=== PATIENT | male | born 1950 | race Caucasian/White ===

== ENCOUNTER 2017-04-08 11:01 | Day surgery (SDC) | payer MEDICARE, BC ==
[~2017-04-08] VITALS: Ht 182.9 cm; Wt 89.9 kg
[2017-04-08] MEDS ORDERED: IOHEXOL 350 MG/ML 100 ML BTL (for Cath Lab) OTHER ONE (11:02)
[2017-04-08] MEDS ORDERED: FOLI400T PO (11:28)
[2017-04-08] MEDS ORDERED: HYDR200T3 PO (11:31)
[2017-04-08] MEDS ORDERED: ARAV10TA PO (11:31)
[2017-04-08] MEDS ORDERED: PRIL20TA2 (11:31)
[2017-04-08] MEDS ORDERED: PRED10 PO (11:31)
[2017-04-08 12:06] VITALS: BP 162/101; PULSE 58; RESP 18; TEMP 97.7; O2SAT 96
--- NOTE | 2017-04-08 12:17 | PD.VS.PN ---
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 I have explained the procedure in detail and discussed the risks, benefits, and potential complications. All questions have been answered. Julien Frausto MD Apr 08, 2017 12:17
[2017-04-08] MEDS ORDERED: HEPARIN SODIUM - IV 10,000 UNITS/10 ML VIAL ONE (12:29)
[2017-04-08] MEDS ORDERED: MIDAZOLAM HCL 2 MG/2 ML VIAL ONE (12:29)
[2017-04-08] MEDS ORDERED: HEPARIN-NS/PF INJ 1,000 ML ONE ×2 (12:29→12:55)
[2017-04-08 12:46] LABS: AUTOMATED NEUTROPHIL # 3.6 TH/MM3 (1.8-7.7); BASOPHIL # 0.1 TH/MM3 (0-0.2); BASOPHIL % 1.3 % (0.0-2.0); EOSINOPHIL # 0.2 TH/MM3 (0-0.4); EOSINOPHIL % 4.3 % (0.0-4.0); HEMATOCRIT 42.2 % (39.0-51.0); HEMOGLOBIN 14.3 GM/DL (13.0-17.0); LYMPH % 17.2 % (9.0-44.0); MEAN CELL VOLUME 89.5 FL (80.0-100.0); MEAN CORPUSCULAR HEMOGLOBIN 30.3 PG (27.0-34.0); MEAN CORPUSCULAR HGB CONC 33.8 % (32.0-36.0); MEAN PLATELET VOLUME 7.9 FL (7.0-11.0); MONO % 12.6 % (0.0-8.0); MONOCYTE # 0.7 TH/MM3 (0-0.9); NEUT % 64.6 % (16.0-70.0); PLATELET COUNT 203 TH/MM3 (150-450); RED BLOOD COUNT 4.71 MIL/MM3 (4.50-5.90); RED CELL DISTRIBUTION WIDTH 14.1 % (11.6-17.2); WHITE BLOOD COUNT 5.6 TH/MM3 (4.0-11.0)
[2017-04-08 12:56] LABS: BICARBONATE 30.3 MEQ/L (21.0-32.0); CALCIUM 8.8 MG/DL (8.5-10.1); CREATININE 1.09 MG/DL (0.60-1.30)
--- NOTE | 2017-04-08 13:31 | HHI.PR ---
Immediate Post Op Note Procedure Date: Apr 08, 2017 Pre Op Diagnosis: PAD, R LE Post Op Diagnosis: PAD, R LE Surgeon: Julien Frausto Desk Clerk(s): none Procedure: Aortogram w/ R LE angiogram Findings: patent major vessels to pedal arteries Complications: none Specimen(s) removed: none Estimated blood loss: 10mL Drains: None Fluids: 20mL IVF Patient to: Other (DOCU) Patient Condition: Good Implant/Devices: SEE IMPLANT LOG (if applicable) Date/Time of Procedure: SEE SURGICAL CARE RECORD Julien Frausto MD Apr 08, 2017 13:31
--- NOTE | 2017-04-08 13:45 | CATHPROC ---
[facility] Prep HIS Report Study Information Study Number Admission Scheduled Start Study Start [id number] Apr 08 2017 11:01AM 04/08/2017 Apr 08 2017 12:55PM [place] Service Cath Endovascular Study Admit Source Facility Department Other [facility] - Electric Furnace Operator Physician and Clinical Staff Initial Julien Gutierrez Rent Control Office ManagerGloria Gutierrez,RICK Rent Control Office ManagerLino Bray,RICK Recorder Duarte Crane,RT(R) Scrub Davion Mendoza,RT(R) Procedures Performed Procedure Location (Site) Vessel Name Abdominal Angiogram Abd Aorta (A3) Aorta Abdominal Angiogram Popliteal R (R10) Popliteal Abdominal Angiogram SFA (right) Femoral Art Angiogram (manual) Tib, Post (right) Popliteal Wire insertion Fem Art (left) Femoral Art Equipment Time Area Attendant Description Size Mfg Part Number Used/Scraped [id number] 13:00 ANGIO-DYNAMICS OMNI FLUSH 65CM CATHETER FR 4 Used *[id number] INTRODUCER SET, 13:00 [employer] FR 5 [id number] *[id number] Used MICROPUNCTURE, STIFFENED [id number] 13:00 [employer] PACK, CCL CUSTOM * Used *[id number] 13:00 [employer] MEDICAL PRESSURE TUBING 48" 48" [id number] Used [id number] 13:00 NAMIC TUBING, HIGH PRESSURE 20" 20" Used *[id number] 13:11 NAMIC TUBING, HIGH PRESSURE 48" 48" Used *[id number] 13:00 [employer]COMED OMNIPAQUE, 300 MG, 150ML 150ML [id number] Used 13:00 [employer] OMNIPAQUE, 300 MG, 50ML 50ML [id number] Used [id number] 13:00 [employer] MEDICAL BLANKET,WARM AIR CCL * Used *[id number] 13:00 TERUMO MEDICAL SHEATH, FR4 TERUMO (10CM) FR 4 Used *[id number] 13:00 [employer] MEDICAL SHEATH, FR4 TERUMO (10CM) FR 4 Used *[id number] WIRE, ANGLED GLIDE .035 [id number] 13:00 TERUMO MEDICAL/DARLIN 260CM Used 260CM *[id number] History: Current Medications Medication Dosage/Unit Route Frequency Last Date/Time Taken 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: Allergies Allergy Reaction Sulfa (Sulfonamide Antibiotics) History: Risk Factors Family History of Hypertension Dyslipidemia Previous MO Previous Heart Failure Premature CAD Yes No No No No Prior Valve Prior PCI Prior CABG Surgery Yes No No Cerebrovascular Peripheral Artery Chronic Lung On Dialysis Diabetes Disease Disease Disease No No Yes No No History: Stress Tests Stress or Imaging Studies Performed No History: Other Disease Selection Items HTN History: Other Current Smoker No Labs Hgb (g/dl) Hct (%) RBC (MIL/MM3) WBC (l/cumm) Platelets (thousands) 11.60-17.00 35.00-51.00 4.00-5.90 4.00-11.00 150.00-450.00 14.3 42.2 4.7 5.6 203 Glucose (mg/dl) BUN (mg/dl) Creatinine (mg/dl) BUN:Creatinine (1:x) 74.00-106.00 7.00-18.00 0.50-1.30 10.00-20.00 96 16 1.0 16 Na (meq/l) K (meq/l) Cl (meq/l) CO2 (mmol/L) Ca (mg/dl) 136.00-145.00 3.50-5.10 98.00-107.00 21.00-32.00 8.50-10.10 140 3.8 104 30.3 8.8 CPK-MB (ng/ML) 0.50-3.60 Not Drawn Medication Medication Total Dose (Bolus/Oral) Medication Total Dosage/Unit 1% XYLOCAINE 20 mL FENTANYL 50 mcg VERSED 2 mg Medications (Bolus/Oral) Medication Time Given Dosage/Unit Administered By Reason 1% XYLOCAINE 04/08/2017 1:08:52 PM 20 mL Gloria Saleh 20 mL 1% XYLOCAINE given in lab by Gloria Saleh, RICK via Subcutaneous. VERSED 04/08/2017 1:09:00 PM 2 mg Gloria Saleh 2 mg VERSED given in lab by Gloria Saleh, RICK in Left Antecubital via Peripheral IV. FENTANYL 04/08/2017 1:09:01 PM 50 mcg Gloria Saleh 50 mcg FENTANYL given in lab by Gloria Saleh, RN in Left Antecubital via Peripheral IV. Medication (Drip) Medication Time Given Dosage/Unit Concentration/Unit Diluent (ml) Solution 04/08/2017 12:55:57 IV Solutions 0 mL (IV) 500 NaCl .9 PM IV Solutions given in lab by Gloria Saleh, RN in Left Antecubital via Peripheral IV. Pump/Drip Watson w = 20 ml/hr using NaCl .9. Initial Case Assessment Cardiovascular HR Rhythm NIBP Chest Pain 57 Sinus 156/94 0 Edema Present Skin color Skin None Normal Warm Dry Circulatory - Right Pulses Femoral 2 Scale (0,1,2,3,4,d) Circulatory - Left Pulses Femoral 2 Scale (0,1,2,3,4,d) Neurological State Oriented to time-place- Alert Moves all extremities person Respiration - General Respiration Rate SpO2 (%) O2 (lpm) (B/min) 12 98 0 Final Case Assessment Cardiovascular HR Rhythm NIBP Chest Pain 56 Sinus 139/89 0 Edema Present Skin color Skin None Normal Warm Dry Circulatory - Right Pulses Femoral 2 Scale (0,1,2,3,4,d) Circulatory - Left Pulses Femoral 2 Scale (0,1,2,3,4,d) Neurological State Oriented to time-place- Alert Moves all extremities person Respiration - General Respiration Rate SpO2 (%) O2 (lpm) (B/min) 11 96 0 Chronological Log Time Study Chronological Log 12:50:55 MD arrived. 12:55:38 Patient arrived via Bed. 12:55:39 Patient Name, D.O.B, / Armband Verified By R.N. 12:55:39 Consent signed by the physician and the patient and verified by the Electric Furnace Operator staff. 12:55:40 Pre-op and post- op instructions given; patient acknowledges understanding of instructions. 12:55:41 Verbal Stimulation=2 Physical Stimulation=2 Airway=2 Respiration=2 TOTAL=8. (0=absent, 1=li mited, 2=present) 12:55:47 Presedation assessment performed by Electric Furnace Operator RN. 12:55:51 Patient has been NPO for More than 6Hrs. 12:55:51 Skin Breakdown-none per patient. 12:55:52 Patient Warmer Placed on the Table. 12:55:54 Rylie Prominences Protected 12:55:56 A # 20 IV was noted in the Antecubital (left). Grade = 0 IV Solutions given in lab by Gloria Saleh, RN in Left Antecubital via Peripheral IV. Pump/Dr ip Flow = 20 ml/hr using 12:55:57 NaCl .9. 12:55:58 History and physical on the chart or being dictated. Assessment: Initial Case, HR=57 BPM, Rhythm=Sinus, TCCU=782/94 mmhg, Chest Pain=0, Edema=None, Color=Normal, Skin = Warm, Dry Right Pulses: Femoral=2 12:55:59 Left Pulses: Femoral=2 Neurological: State=Alert, Ox3, AARON Respiration: Resp=12 B/min, SpO2=98 %, O2=0 lpm Vitals capture started with the following parameters, Patient=Adult, Interval=5 min, Initial Pr rpsjpd=588 mmHg, 12:56:04 Deflation Rate=5 mmHg, Cuff placed on Right Arm 12:56:59 HR=57 bpm, AHTG=853/94 mmhg, SpO2=98.0 %, Resp=12 B/min, Pain=0, Ck=10, Zhou=2 13:01:40 HR=56 bpm, EKHH=721/95 mmhg, SpO2=99.0 %, Resp=11 B/min, Pain=0, Ck=10, Zhou=2 13:06:41 HR=53 bpm, TZAB=828/96 mmhg, SpO2=99.0 %, Resp=12 B/min, Pain=0, Ck=10, Zhou=2 Time Out. Correct patient, correct procedure, correct physician, power injector loaded with con trast with surgical team 13:08:49 present. Time Out Concurred by MD and individual staff in procedure. 13:08:50 Case Start 13:08:52 20 mL 1% XYLOCAINE given in lab by Gloria Saleh, RICK via Subcutaneous. 13:09:00 2 mg VERSED given in lab by Gloria Saleh, RN in Left Antecubital via Peripheral IV. 13:09:01 50 mcg FENTANYL given in lab by Gloria Saleh, RN in Left Antecubital via Peripheral IV. 13:10:06 Reference ECG taken 13:10:49 Access site was Left Femoral Artery. 13:10:56 A SHEATH, FR4 TERUMO (10CM) FR 4 was advanced into the Fem Art (left) using the Percutaneou s technique. 13:11:44 HR=55 bpm, ZVMN=160/87 mmhg, SpO2=97.0 %, Resp=13 B/min, Pain=0, Ck=10, Zhou=2 A OMNI FLUSH 65CM CATHETER FR 4 was advanced over a wire. OMNIPAQUE, 300 MG, 50ML 50ML was used for 13:11:48 injections. 13:13:32 Through a OMNI FLUSH 65CM CATHETER FR 4, The Abdominal Aorta was injected with 10 cc's of c ontrast. 13:14:02 A WIRE, ANGLED GLIDE .035 260CM 260CM was inserted via Fem Art (left). 13:14:55 Wire removed 13:15:26 Through a OMNI FLUSH 65CM CATHETER FR 4, The Abdominal Aorta was injected with 4 cc's of co ntrast. 13:16:00 Through a OMNI FLUSH 65CM CATHETER FR 4, The Abdominal Aorta was injected with 4 cc's of co ntrast. 13:16:30 Through a OMNI FLUSH 65CM CATHETER FR 4, The Abdominal Aorta was injected with 4 cc's of co ntrast. 13:16:45 HR=56 bpm, GNKC=307/79 mmhg, SpO2=96.0 %, Resp=1 B/min, Pain=0, Ck=10, Zhou=2 13:19:30 Through a OMNI FLUSH 65CM CATHETER FR 4, The Abdominal Aorta was injected with 4 cc's of co ntrast. 13:21:38 HR=55 bpm, BAHK=566/76 mmhg, SpO2=95.0 %, Resp=13 B/min, Pain=0, Ck=10, Zhou=2 13:22:41 Tib, Post (right) angiogram, manually injected. 13:24:05 Catheter was removed 13:24:13 Case End 13:25:16 Sheath removed; pressure applied to access site. 13:25:19 No case complications noted. 13:25:20 Cine recording checked. 13:26:00 Bedside Report will be given. Assessment: Final Case, HR=56 BPM, Rhythm=Sinus, DWRL=856/89 mmhg, Chest Pain=0, Edema=None, Color=Normal, Skin = Warm, Dry Right Pulses: Femoral=2 13:26:16 Left Pulses: Femoral=2 Neurological: State=Alert, Ox3, AARON Respiration: Resp=11 B/min, SpO2=96 %, O2=0 lpm 13:26:37 HR=57 bpm, MCSF=048/89 mmhg, SpO2=96.0 %, Resp=21 B/min, Pain=0, Ck=10, Zhou=2 13:32:13 HR=54 bpm, FDJC=521/88 mmhg, SpO2=96.0 %, Resp=13 B/min, Pain=0, Ck=10, Zhou=2 13:36:41 HR=61 bpm, GPUR=606/89 mmhg, SpO2=95.0 %, Resp=15 B/min, Pain=0, Ck=10, Zhou=2 13:41:42 HR=52 bpm, NUVG=075/89 mmhg, SpO2=97.0 %, Resp=16 B/min, Pain=0, Ck=10, Zhou=2 13:44:39 Vitals capture stopped. 13:48:47 Patient moved to [facility] End Study - Contrast Media Used In Study Contrast Total Opened (mL) Total Used (mL) Total Wasted (mL) Omnipaque 150 75 75 End Study - Maximum Contrast Load Max Contrast Load (mL) 449.5 End Study - Radiation Exposure Fluoro Time (minutes) 3.0 End Study - Patient Disposition Complications Transferred To Interventional Outcome No Outpatient Bed No attempt made
--- NOTE | 2017-04-09 13:33 | MP ---
cc: SHERI FRAUSTO MD DATE OF SURGERY 04/08/2017 PREOPERATIVE DIAGNOSIS Peripheral arterial occlusive disease with right lower extremity tissue loss. POSTOPERATIVE DIAGNOSIS Peripheral arterial occlusive disease with right lower extremity tissue loss. CONSENT Aortogram with right lower extremity angiogram. ATTENDING SURGEON Sheri Frausto MD RESIDENT SURGEON None. ANESTHESIA Local with sedation. INDICATIONS Mr. Navarrete is a 66-year-old gentleman who has a previous right lower extremity intervention done in [place] several months ago. He presents with a toe wound that is slowly healing. He wilkerson non-palpable pedal pulses and is taken to the operating room for angiographic evaluation and eventual treatment. DESCRIPTION OF PROCEDURE Informed consent obtained. The patient was taken to the operating room and placed supine on the operating room table. An appropriate time-out was taken to ensure the patient's identity, the operative site and planned procedure. The administration of antibiotics was not necessary since it is a clean procedure without planned implantation of any foreign object. Everyone in the room agreed with the time-out and we proceeded. His left groin was anesthetized with 1% lidocaine. A 21-gauge micropuncture sheath and needle used to access the left common femoral artery. This was exchanged using Seldinger technique through the micropuncture sheath through which a 0.035 Glidewire was introduced and the micropuncture sheath was exchanged for a 4-Estonian sheath. A VCF catheter was placed over the wire and through the sheath and then the aortogram was obtained. The Glidewire was introduced, navigated down to the right common femoral artery. The VCF catheter was advanced over this and the right lower extremity arteriogram was obtained. The wire, catheter and sheaths were removed and pressure used to obtain hemostasis. There were no complications. I was present and scrubbed and performed the entire procedure. INTERPRETATION OF IMAGES This patient has a patent infrarenal aorta, common iliac arteries, external iliac arteries and hypogastric arteries. None of these have any hemodynamically significant stenoses. The right common femoral artery, profunda and SFA are widely patent without any hemodynamically significant stenosis. The popliteal artery and pretibial vessels are all patent to the ankle. There is some pedal disease that is hemodynamically significant. MD LENNOX HensleyF/LETTY /2:17 PM /1:18 PM MORENO
== END 2017-04-08 16:45 | disposition home or self-care (01) ==
LOC: HDOC 11:01 → HDIC 11:02 → HDOC 16:45
PROVIDERS: ATTEND Surgery
DX: I73.9 Peripheral vascular disease, unspecified (principal); L98.499 Non-pressure chronic ulcer of skin of other sites with unspecified severity; I10 Essential (primary) hypertension; M19.90 Unspecified osteoarthritis, unspecified site; Z95.2 Presence of prosthetic heart valve; Z01.818 Encounter for other preprocedural examination
CPT/HCPCS: 36246; 75625; 75710; 80048; 85025; 99152; C1769; C1893; J1644; J2250; J3010; Q9967

== ENCOUNTER → 2017-04-30 | Outpatient (CLI) | payer MEDICARE, BC ==
[~2017-04-30] MED LIST: ACTE80IN IV; ARAV10TA PO; ASPI81 PO; DILA2TAB4 PO; FOLI400T PO; HYDR200T3 PO; LOSA100T3 PO; METO-309 PO; PRED10 PO; PRIL20TA2 PO; WALKER GLIDE WH1 MI1; [UNRECOGNIZED DRUG - CODE] PO
[2017-04-30 12:45] LABS: HEMATOCRIT 41.9 % (39.0-51.0); HEMOGLOBIN 14.4 GM/DL (13.0-17.0); MEAN CELL VOLUME 90.6 FL (80.0-100.0); MEAN CORPUSCULAR HEMOGLOBIN 31.1 PG (27.0-34.0); MEAN CORPUSCULAR HGB CONC 34.3 % (32.0-36.0); MEAN PLATELET VOLUME 7.7 FL (7.0-11.0); PLATELET COUNT 293 TH/MM3 (150-450); RED BLOOD COUNT 4.62 MIL/MM3 (4.50-5.90); RED CELL DISTRIBUTION WIDTH 14.4 % (11.6-17.2); WHITE BLOOD COUNT 9.1 TH/MM3 (4.0-11.0)
[2017-04-30 12:54] LABS: PROTHROMBIN TIME - PATIENT 10.1 SEC (9.8-11.6)
[2017-04-30 13:00] LABS: BICARBONATE 31.1 MEQ/L (21.0-32.0); CALCIUM 8.6 MG/DL (8.5-10.1); CREATININE 1.21 MG/DL (0.60-1.30)
--- NOTE | 2017-05-01 22:13 | EKG ---
Date Performed: 04/30/2017 Time Performed: 12:07:22 PTAGE: 67 years EKG: Sinus rhythm with 1st degree A-V block Abnormal ECG NO PREVIOUS TRACING DOCTOR: Dick Nascimento Interpretating Date/Time 05/01/2017 22:13:40
== END ==
LOC: CPRE 11:25
PROVIDERS: ATTEND Surgery
DX: Z01.812 Encounter for preprocedural laboratory examination (principal); Z01.810 Encounter for preprocedural cardiovascular examination; M86.9 Osteomyelitis, unspecified
CPT/HCPCS: 36415; 80048; 85027; 85610; 93005

== ENCOUNTER 2017-05-02 14:39 | Observation (INO) | payer MEDICARE, BC ==
[~2017-05-02] VITALS: Ht 182.9 cm; Wt 87.5 kg
[~2017-05-02 14:39] MED LIST changes: -ASPI81 PO; -DILA2TAB4 PO; -WALKER GLIDE WH1 MI1
[2017-05-02] MEDS ORDERED: SODIUM CHLORID 0.9% 500 ML IV PRN (15:15)
[2017-05-02] MEDS ORDERED: CHLORHEXIDINE GLUCONATE 2 % 1 PACK (2 CLOTHS) TOPICAL PRN (15:15)
[2017-05-02] MEDS ORDERED: POVIDONE IODINE 5% (ANTISEPSIS KIT) 4 APPLICATIONS EACH NARE PRN (15:15)
[2017-05-02] MEDS ORDERED: LACTATED RINGER'S 1000 ML IV PRN (15:15)
[2017-05-02] MEDS ORDERED: METOPROLOL TARTRATE 25 MG TAB PO PRN (15:15)
[2017-05-02] MEDS ORDERED: DILA2TAB4 PO ×2 (15:43)
--- NOTE | 2017-05-02 16:02 | HHI.HP ---
History of Present Illness Chief Complaint: R 2nd toe amputation, PAD History of Present Illness 66 yo male with PAD and h/o endovascular intervention in [place], recently worsened R 2nd toe that has progressed to dry gangrene. Presents for toe amputation and angiogram Past/Family/Social History Past Medical History PAD HTN OA Past Surgical History AVR spine surgery Social History nonsmoker Family History NC Home Medications Reported Medications Hydromorphone (Dilaudid) 2 Mg Tab, 4 MG PO Q4H Y for Pain Management, TAB 0 Refills 05/02/17 Tocilizumab Inj (Actemra Inj) 80 Mg/4 Ml (20 Mg/Ml) Inj, IV MONTHLY 04/30/17 Losartan-Hydrochlorothiazide (Losartan-Hydrochlorothiazide) 100-12.5 Mg Tab, 1 TAB PO DAILY for Blood Pressure Management, #30 TAB 0 Refills 04/30/17 Metoprolol Tartrate (Lopressor) 50 Mg Tab, 75 MG PO BID, #90 TAB 0 Refills 04/30/[address] (Yifan) 5 Mg Tab, 5 MG PO HS 04/30/17 Prednisone (Prednisone) 10 Mg Tab, 5 MG PO DAILY, TAB 0 Refills 04/08/17 Omeprazole Magnesium (Prilosec) 20 Mg Tab, 20 MG PO DAILY 04/08/17 Leflunomide (Arava) 10 Mg Tab, 10 MG PO DAILY, TAB 04/08/17 Hydroxychloroquine (Hydroxychloroquine) 200 Mg Tab, 200 MG PO DAILY, #60 TAB 0 Refills Takw with food 04/08/17 Folic Acid (Folic Acid) 0.4 Mg Tab, 400 MCG PO DAILY for Nutritional Supplement , TAB 0 Refills 04/08/17 Coded Allergies: Sulfa (Sulfonamide Antibiotics) (Verified Allergy, Unknown, 05/02/17) Review of Systems Constitutional: DENIES: Chills Respiratory: DENIES: Cough Cardiovascular: DENIES: Chest pain Physical Exam Neuro: alert, oriented HEENT: NC/AT; anicteric sclera Neck: no JVD; trachea midline Heart: reg rate Lungs: clear bilaterally Abdomen: NT Vascular: nonpalpable pulses Extremities: R toe with dry gangrene Hct 42 plt 293 INR 1.0 creatinine 1.2 will make in OR Caprini VTE Risk Assessment Caprini VTE Risk Assessment: No/Low Risk (score <= 1) Caprini Risk Assessment Model Point Value = 1 Point Value = 2 Point Value = 3 Point Value = 5 Age 41-60 Minor surgery BMI > 25 kg/m2 Swollen legs Varicose veins or History of unexplained or recurrent spontaneous Oral contraceptives or hormone replacement Sepsis (< 1 month) Serious lung disease, including pneumonia (< 1 month) Abnormal pulmonary function Acute myocardial infarction Congestive heart failure (< 1 month) History of inflammatory bowel disease Medical patient at bed rest Age 61-74 Arthroscopic surgery Major open surgery (> 45 min) Laparoscopic surgery (> 45 min) Malignancy Confined to bed (> 72 hours) Immobilizing plaster cast Central venous access Age >= 75 History of VTE Family history of VTE Factor V Leiden Prothrombin [id number] Lupus anticoagulant Anticardiolipin antibodies Elevated serum homocysteine Heparin-induced thrombocytopenia Other congenital or acquired thrombophilia Stroke (< 1 month) Elective arthroplasty Hip, pelvis, or leg fracture Acute spinal cord injury (< 1 month) Prophylaxis Regimen Total Risk Factor Score Risk Level Prophylaxis Regimen 0-1 Low Early ambulation 2 Moderate Order ONE of the following: *Sequential Compression Device (SCD) *Heparin 5000 units SQ BID 3-4 Higher Order ONE of the following medications: *Heparin 5000 units SQ TID *Enoxaparin/Lovenox 40 mg SQ daily (WT < 150 kg, CrCl > 30 mL/min) *Enoxaparin/Lovenox 30 mg SQ daily (WT < 150 kg, CrCl > 10-29 mL/min) *Enoxaparin/Lovenox 30 mg SQ BID (WT < 150 kg, CrCl > 30 mL/min) AND/OR *Sequential Compression Device (SCD) 5 or more Highest Order ONE of the following medications: *Heparin 5000 units SQ TID (Preferred with Epidurals) *Enoxaparin/Lovenox 40 mg SQ daily (WT < 150 kg, CrCl > 30 mL/min) *Enoxaparin/Lovenox 30 mg SQ daily (WT < 150 kg, CrCl > 10-29 mL/min) *Enoxaparin/Lovenox 30 mg SQ BID (WT < 150 kg, CrCl > 30 mL/min) AND *Sequential Compression Device (SCD) Assessment and Plan Plan Plan for R LE angiogram and possible endovascular intervention, toe amputation Consents obtained, operative site marked To OR [phone] Discharge Planning tomorrow (POD#1) Feezor,Julien J MD May 02, 2017 16:02
[2017-05-02] MEDS ORDERED: ceFAZolin 2 GM PREMIX 50 ML ONE (16:16)
[2017-05-02] MEDS ORDERED: PROTAMINE SULFATE 50 MG/5 ML VIAL ONE (16:16)
[2017-05-02] MEDS ORDERED: HEPARIN SODIUM - IV 10,000 UNITS/10 ML VIAL ONE (16:16)
[2017-05-02] MEDS ORDERED: HEPARIN-NS/PF INJ 500 ML ONE (16:16)
[2017-05-02] MEDS ORDERED: MIDAZOLAM HCL 2 MG/2 ML VIAL ONE (17:07)
[2017-05-02] MEDS ORDERED: IOHEXOL 300 INJ 50 ML IV ONE ×2 (17:09→17:11)
--- NOTE | 2017-05-02 18:10 | HHI.PR ---
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 R LE angiogram 2. R PT DERMATOLOGIST AND DERMATOPATHOLOGIST (3mm) 3. R AT DERMATOLOGIST AND DERMATOPATHOLOGIST (3mm) 4. L AXMINSTER RUG SETTER angioseal 5. R 2nd toe amputation Findings: decent bleeding after endovascular intervention no undrained purulence Complications: none Specimen(s) removed: Toe Estimated blood loss: 20mL Anesthesia: LMA Drains: None Fluids: 1200mL IVF Patient to: PACU Patient Condition: Good Implant/Devices: SEE IMPLANT LOG (if applicable) Date/Time of Procedure: SEE SURGICAL CARE RECORD Julien Frausto MD May 02, 2017 18:10
[2017-05-02] MEDS ORDERED: DO NOT ADM ANY ANTICOAGULANT DRUGS PRN (18:15)
[2017-05-02] MEDS ORDERED: DEXTROSE 50% IN WATER 50 ML VIAL(D50) IV PUSH PRN (18:15)
[2017-05-02] MEDS ORDERED: BISACODYL 10 MG SUPP RECTAL PRN (18:15)
[2017-05-02] MEDS ORDERED: SENNOSIDES 8.6 MG TAB PO PRN (18:15)
[2017-05-02] MEDS ORDERED: LACTULOSE SYRUP 20 GM/30 ML CUP PO PRN (18:15)
[2017-05-02] MEDS ORDERED: MAGNESIUM HYDROXIDE SUSP 30 ML CUP PO PRN (18:15)
[2017-05-02] MEDS ORDERED: GLUCAGON 1 MG/ML VIAL OTHER PRN (18:15)
[2017-05-02] MEDS ORDERED: *morphine SULFATE 4 MG/ML PERIprocedure ONLY ONE (18:45)
[2017-05-02] MEDS ORDERED: PILL SPLITTER OTHER PRN (20:00)
[2017-05-02] MEDS ORDERED: PREDNISONE 5 MG PO SCH (21:00)
[2017-05-02] MEDS: INSULIN ASPART SUPPLEMENTAL SCALE SQ SCH (21:00)
[2017-05-02] MEDS ORDERED: predniSONE 5 MG TAB PO SCH (21:00)
[2017-05-02 22:00] VITALS: BP 127/89; PULSE 85; RESP 16; TEMP 97.3; O2SAT 97
[2017-05-02] MEDS: DOCUSATE SODIUM 50 MG/SENNA 8.6 MG TAB PO SCH (22:55)
[2017-05-02] MEDS: FAMOTIDINE 20 MG TAB PO SCH (22:55)
[2017-05-02] MEDS: METOPROLOL TARTRATE 25 MG TAB PO SCH (22:56)
[2017-05-02 23:00] VITALS: PULSE 107
[2017-05-02] MEDS: HYDROmorphone HCL 2 MG TAB PO PRN (23:01)
[2017-05-02 23:41] VITALS: BP 144/84; PULSE 101; RESP 16; TEMP 97.3; O2SAT 97
[2017-05-03] VITALS (11 sets, daily range): BP systolic 108–156; BP diastolic 70–95; PULSE 68–104; RESP 16–20; TEMP 97.4–97.9; O2SAT 94–96
[2017-05-03] MEDS: HYDROmorphone HCL 2 MG TAB PO PRN ×3 (03:23→11:30)
[2017-05-03] MEDS: INSULIN ASPART SUPPLEMENTAL SCALE SQ SCH (08:00)
[2017-05-03] MEDS ORDERED: ASPIRIN 81 MG CHEW TAB PO SCH (09:00)
[2017-05-03] MEDS ORDERED: FOLIC ACID 1 MG TAB PO SCH (09:00)
[2017-05-03] MEDS ORDERED: predniSONE 5 MG TAB PO SCH (09:00)
[2017-05-03] MEDS ORDERED: HYDROXYCHLOROQUINE SULFATE 200 MG TAB PO SCH (09:00)
[2017-05-03] MEDS ORDERED: HYDROCHLOROTHIAZIDE 12.5 MG CAP PO SCH (09:00)
[2017-05-03] MEDS ORDERED: NON-FORMULARY DRUG (Losartan-Hydrochlorothiazide 1 TAB) PO SCH (09:00)
[2017-05-03] MEDS: DOCUSATE SODIUM 50 MG/SENNA 8.6 MG TAB PO SCH (09:00)
[2017-05-03] MEDS ORDERED: LOSARTAN 50 MG TAB PO SCH (09:00)
[2017-05-03] MEDS: FAMOTIDINE 20 MG TAB PO SCH (09:58)
[2017-05-03] MEDS: METOPROLOL TARTRATE 25 MG TAB PO SCH (09:58)
[2017-05-03] MEDS ORDERED: WALKER GLIDE WH1 MI1 (09:59)
--- NOTE | 2017-05-03 10:09 | PD.VS.PN ---
Subjective POD #: 1 Procedure(s): R LE angiogram R PT MANAGEMENT ACCOUNTANT (3mm) R AT MANAGEMENT ACCOUNTANT (3mm) L ROAD SUPERVISOR angioseal R 2nd toe amputation Subjective/Hospital Course 67/M S/P R LE revascularization/ 2nd toe amputation POD 1, doing well Pain controlled Ambulating w/o difficulty Dressing to Right foot I/C/D Pt w/o complaints Objective Vitals/I&O Date Time Temp Pulse Resp B/P (MAP) Pulse Ox O2 Delivery O2 Flow Rate FiO2 05/03/17 09:00 98 05/03/17 08:00 86 05/03/17 07:47 97.9 80 20 109/70 (83) 95 05/03/17 07:00 83 05/03/17 03:26 97.4 69 16 156/95 (115) 94 05/03/17 02:00 78 05/03/17 01:00 76 05/03/17 00:00 80 05/02/17 23:41 97.3 101 16 144/84 (104) 97 05/02/17 23:00 107 05/02/17 22:00 97.3 85 16 127/89 (102) 97 05/02/17 21:25 98.0 86 16 126/78 (94) 99 Room Air 05/02/17 20:15 85 16 123/76 (92) 95 Room Air 05/02/17 19:15 82 18 133/81 (98) 95 Room Air 05/02/17 19:00 85 16 128/74 (92) 94 Room Air 05/02/17 18:45 85 17 126/81 (96) 93 Room Air 05/02/17 18:30 85 17 115/68 (84) 94 Nasal Cannula 2 05/02/17 18:15 97.8 72 15 107/61 (76) 94 Nasal Cannula 2 05/02/17 15:15 97.5 68 18 126/83 (97) 97 Exam: GENERAL: A&OX3,GCS 15, NAD SKIN: LE Warm and dry with motor intact Right 2nd toe amputation site with red granulation tissue/ No S/D/O present L LE w/ a superficial abrasion no R/D/S/O MUSCULOSKELETAL: No cyanosis, or edema. Biphasic Right DP heard via Doppler Assessment and Plan Assessment: (1) Amputated toe of right foot (2) PAD (peripheral artery disease) Plan Pt s/p R LE angiogram/successful revascularization and R 2nd toe amputation POD 1, doing well LE warm with motor intact and strong Doppler signals present Plan Discussed post operative care and management with pt and Pt clear for D/C with out pt f/u in 1W Apply post op shoe prior to D/C Walker ordered Yulissa ARORA [facility] [phone] Discharge Planning today (POD#1) Arranged OP F/u Yulissa Carmen May 03, 2017 10:09
[2017-05-03] MEDS ORDERED: ASPI81 PO (10:14)
--- NOTE | 2017-05-03 10:20 | HHI.FF ---
Face to Face Verification Diagnosis: (1) Amputated toe of right foot (2) PAD (peripheral artery disease) Home Health Nursing Order: Medical education Signs/symptoms of disease process Wound care and dressing changes Instructions: Cleanse Right 2nd toe amputation site with sterile NS daily Apply wet to dry dressing to R 2nd toe daily Use sterile 4x4, Kerlix then tape Change dressing daily Apply non stick (Telfa) dressing to Left LE wound (lateral aspect of LE) then Kerlix, tape Cleanse daily with sterile NS Change daily Call the office to report any new onset fever, chills, krystal wound warmth, redness, drainage and moderate swelling Yulissa ARORA [facility] [phone] I have seen patient William Navarrete on 05/03/17. My clinical findings support the need for the requested home health care services because: Pt is medically clear for d/c but will need HHS for wound care dressing changes and management for optimal wound healing Ltd mobility - disease progression High risk of falls Infection w/ risk of complications I certify that my clinical findings support that this patient is homebound because: Pt is medically clear for d/c but will need HHS for wound care dressing changes and management for optimal wound healing Post-op weakness Unsteady gait/balance Yulissa Carmen May 03, 2017 10:20
--- NOTE | 2017-05-03 10:31 | PD.VS.DC ---
Discharge Summary Admission Date: May 02, 2017 at 18:21 Discharge Date: May 03, 2017 Admission Diagnosis: (1) PAD (peripheral artery disease) Discharge Diagnosis: (1) Amputated toe of right foot ICD Codes: Z89.421 - Acquired absence of other right toe(s) (2) PAD (peripheral artery disease) ICD Codes: I73.9 - Peripheral vascular disease, unspecified Brief History from admission 66 yo male with PAD and h/o endovascular intervention in [place] Recently worsened R 2nd toe that has progressed to dry gangrene. Presents for toe amputation and angiogram Procedure(s): R LE angiogram R PT VISUAL DEVELOPER (3mm) R AT VISUAL DEVELOPER (3mm) L FRONT END ENGINEER angioseal R 2nd toe amputation Significant Findings Exam: GENERAL: A&OX3,GCS 15, NAD SKIN: LE Warm and dry with motor intact Right 2nd toe amputation site with red granulation tissue/ No S/D/O present Superficial wound noted to L LE (lateral aspect of LE) with distal end scabbing and proximal end with red granulation tissue/ No S/D/R MUSCULOSKELETAL: No cyanosis, or edema. Biphasic Right DP heard via Doppler Hospital Course: 66 yo male with PAD and h/o endovascular intervention in [place] Recently worsened R 2nd toe that has progressed to dry gangrene. Presents for toe amputation and angiogram Pt S/P R LE revascularization/ 2nd toe amputation POD 1, doing well Pain controlled Ambulating w/o difficulty Dressing to Right foot I/C/D Pt w/o complaints Pt d/c with post op f/u in 1[facility] Allergies Coded Allergies Type Severity Reaction Last Updated Verified Sulfa (Sulfonamide Antibiotics) Allergy Unknown 05/02/17 Yes 05/01/17 05/01/17 05/02/17 05/02/17 05/03/17 05/03/17 06:00 18:00 06:00 18:00 06:00 18:00 Intake Total 1200 ml 450 ml Output Total 20 ml 0 ml Balance 1180 ml 450 ml Intake Oral 200 ml IV Total 250 ml Other 1200 ml Output Urine Total 0 ml Estimated Blood Loss 20 ml Orders Procedure Category Date Status Time Lactated Ringer's MED 05/02/17 In Process 1000 Ml Inj (Lr 1000 M 15:15 Sodium Chlorid 0.9% MED 05/02/17 In Process 500 Ml Inj (Ns 500 M 15:15 Metoprolol Tartrate MED 05/02/17 In Process (Lopressor) 15:15 Povidone Iod 5% MED 05/02/17 In Process Antisepsis Kit 15:15 Chlorhexidine 2% MED 05/02/17 In Process Cloth (Chlorhexidine 15:15 Protamine Sulfate Inj MED 05/02/17 Complete (Protamine Sulfate 16:16 Heparin Inj (Heparin MED 05/02/17 Complete Inj) 16:16 Heparin-Ns/Pf Inj MED 05/02/17 Complete (Heparin-Ns/Pf Inj) 16:16 Cefazolin 2 Gm Premix MED 05/02/17 Complete (Ancef 2 Gm Premix 16:16 Endovascular Cath CATH 05/02/17 Logged Sds Pre Op Care [facility] 05/02/17 Complete Midazolam Inj (Versed MED 05/02/17 Complete Inj) 17:07 Fentanyl Inj MED 05/02/17 Complete (Fentanyl Inj) 17:08 Iohexol 300 Inj MED 05/02/17 Complete (Omnipaque 300 Inj) 17:09 Iohexol 300 Inj MED 05/02/17 Complete (Omnipaque 300 Inj) 17:11 Place In Observation ADMITTING 05/02/17 Transmitted Code Status CODE 05/02/17 Transmitted 18:10 Vital Signs (Adult) KRISTINE 05/02/17 In Process 18:10 Liquor Grinding Mill Operator / KRISTINE 05/02/17 In Process Telemetry 18:10 Activity Oob Ad Trisha KRISTINE 05/03/17 In Process 08:00 Activity Bed Rest KRISTINE 05/02/17 In Process 18:10 Wound KRISTINE 05/02/17 In Process 18:10 Diet Heart Healthy DIET 05/02/17 Transmitted Dinner Case Management CONS 05/02/17 Transmitted Consult Aspirin Chew (Aspirin MED 05/03/17 In Process Chew) 09:00 Famotidine (Pepcid) MED 05/02/17 In Process 21:00 Scd Bilateral/Knee KRISTINE 05/02/17 In Process High 18:10 Docusate Sodium-Senna MED 05/02/17 In Process (Charlene-Colace) 21:00 Magnesium Hydroxide MED 05/02/17 In Process Liq (Milk Of Magnesi 18:15 Sennosides (Senokot) MED 05/02/17 In Process 18:15 Bisacodyl Supp MED 05/02/17 In Process (Dulcolax Supp) 18:15 Lactulose Liq MED 05/02/17 In Process (Lactulose Liq) 18:15 Blood Glucose Goal KRISTINE 05/02/17 In Process (Criteria) 18:10 Hypoglycemia 70 Mg/Dl KRISTINE 05/02/17 In Process Or < 18:[address]: Other KRISTINE 05/02/17 In Process 18:10 Dextrose 50% In Stacey MED 05/02/17 In Process (Vial) Inj (D50w (Vi 18:15 Glucagon Inj MED 05/02/17 In Process (Glucagon Inj) 18:15 Insulin Aspart MED 05/02/17 In Process Supplemtl Scale 21:00 Folic Acid (Folate) MED 05/03/17 In Process 09:00 Hydromorphone MED 05/02/17 In Process (Dilaudid) 18:15 Hydroxychloroquine MED 05/03/17 In Process (Plaquenil) 09:00 (NF) MED 05/03/17 Complete Losartan-Hydrochlorothiazide 09:00 Fentanyl Inj MED 05/02/17 Complete (Fentanyl Inj) 18:25 *Morphine Inj MED 05/02/17 Complete (*Morphine Inj 18:45 Prednisone (Deltasone) MED 05/03/17 In Process 09:00 Pill Splitter (Pill MED 05/02/17 In Process Splitter) 20:00 Prednisone (Deltasone) MED 05/02/17 In Process 21:00 Enoxaparin Inj MED 05/03/17 In Process (Lovenox Inj) 17:30 Metoprolol Tartrate MED 05/02/17 In Process (Lopressor) 21:00 Losartan (Cozaar) MED 05/03/17 In Process 09:00 Hydrochlorothiazide MED 05/03/17 In Process (Microzide) 09:00 Misc Nursing MED 05/02/17 In Process Information 18:15 Class Iv Pacu Ea 30 [facility] 05/02/17 Complete MIN General/Pacu [facility] 05/02/17 Complete Post Anesthesia Oxygen [facility] 05/02/17 Complete Pacu Cpcu Holding [facility] 05/02/17 Complete Hourly Bedside Glucose [facility] 1/11/18 Complete Shoe Post Op ORTHO 05/03/17 Logged Attending Discharge DISCHARGE 05/03/17 Transmitted Order Vital Signs Date Time Temp Pulse Resp B/P (MAP) Pulse Ox O2 Delivery O2 Flow Rate FiO2 05/03/17 10:00 104 05/03/17 09:00 98 05/03/17 08:00 86 05/03/17 07:47 97.9 80 20 109/70 (83) 95 05/03/17 07:00 83 05/03/17 03:26 97.4 69 16 156/95 (115) 94 05/03/17 02:00 78 05/03/17 01:00 76 05/03/17 00:00 80 05/02/17 23:41 97.3 101 16 144/84 (104) 97 05/02/17 23:00 107 05/02/17 22:00 97.3 85 16 127/89 (102) 97 05/02/17 21:25 98.0 86 16 126/78 (94) 99 Room Air 05/02/17 20:15 85 16 123/76 (92) 95 Room Air 05/02/17 19:15 82 18 133/81 (98) 95 Room Air 05/02/17 19:00 85 16 128/74 (92) 94 Room Air 05/02/17 18:45 85 17 126/81 (96) 93 Room Air 05/02/17 18:30 85 17 115/68 (84) 94 Nasal Cannula 2 05/02/17 18:15 97.8 72 15 107/61 (76) 94 Nasal Cannula 2 05/02/17 15:15 97.5 68 18 126/83 (97) 97 Discharge Condition: Good Discharge Disposition: Disch w/ Home Health Serv Discharge Instructions: Follow up in our out pt clinic in [facility] ordered for daily wound care/management You were prescribed a narcotic pain medication which could cause constipation- take with an over the counter stool softener No driving while taking your prescribed pain medication as it may cause dizziness You may shower in the next few day NO tub baths until your amputation site is fully healed Call the office to report any new onset fever, chills, increased redness, drainage or moderate swelling Call the office with any questions or concerns Yulissa ARORA [employer] [place] [phone] Any questions or concerns: Call [facility] at [facility] [phone] Yulissa Carmen May 03, 2017 10:31
[2017-05-03] MEDS ORDERED: ENOXAPARIN SODIUM 40 MG/0.4 ML SYRINGE SQ SCH (17:30)
--- NOTE | 2017-05-03 18:21 | MP ---
cc: JULIEN FRAUSTO MD DATE OF SURGERY: 05/02/2017. PREOPERATIVE DIAGNOSIS: Right lower extremity second toe osteomyelitis and peripheral arterial occlusive disease. POSTOPERATIVE DIAGNOSIS: Right lower extremity second toe osteomyelitis and peripheral arterial occlusive disease. OPERATIVE PROCEDURE PERFORMED: 1. Right lower extremity angiogram. 2. Right anterior tibial artery angioplasty. 3. Right posterior tibial artery angioplasty. 4. Right second toe amputation. SURGEON: Julien Frausto MD. ANESTHESIA: LMA. INDICATIONS FOR THE PROCEDURE: Mr. Navarrete is a 67-year-old gentleman with diabetes and peripheral arterial occlusive disease. He had a previously healing right second toe wound but over the past couple of weeks it turned frankly gangrenous since his transition to a worse clinical care, there was no angiographic evaluation and treatment. He is taken to the operating room for angiographic evaluation and treatment and toe amputation. DESCRIPTION OF THE PROCEDURE IN DETAIL: Informed consent was obtained from the patient and he was taken tot the operating room and placed supine on the operating room table. Appropriate time out was taken to show the patient, the operative site and the planned procedure. Two grams of Ancef was initiated prior to the skin incision and will be discontinued after a single preoperative dose. Everyone in the room agreed to the time-out and we proceeded. His bilateral groins and right foot were prepped and draped. A 21-gauge micropuncture needle was used to access the left common femoral artery and this was exchanged using Seldinger technique and a micropuncture sheath through which a 0.035 Glidewire was introduced. The micropuncture sheath was exchanged for a 5-[place]izen [place] sheath and a VCF catheter was placed over the wire into the sheath and the VCF and Glidewire were navigated down to the right common femoral artery. A right lower extremity arteriogram was obtained. The patient was systemically heparinized with 5000 units of IV heparin. A 0.035 Persaud wire was introduced and passed down to the popliteal artery. The VCF catheter and 5-Citizen [place] sheath were removed and a 56-[place]izen [place], 90 cm sheath was introduced. A CXI catheter was placed over the wire and through the sheath and the Persaud was changed for a Glidewire and this was used to navigate it into the proximal posterior tibial artery. We then exchanged the Glidewire for a PROCESS TANK TENDER wire and a Choice PT wire, both of which were used to navigate to the very distal-most aspects of the posterior tibial artery. We could not navigate past the perimalleolar tibial artery. The posterior tibial artery was angioplastied with 3 mm balloon. The completion angiogram showed excellent result without any recoil, extravasation or flow-limiting dissection. The wire and catheter were pulled back to the below-knee popliteal artery and using the aid of a navigation of the Glidewire, we were able to navigate into the anterior tibial artery and similarly the CXI catheter was advanced over this and the PROCESS TANK TENDER wire was exchanged after removing the Glidewire and passed down to the distal anterior tibial artery. The dorsalis pedis could not be re-canalized so the distal anterior tibial artery was angioplastied with a 3 mm balloon. The wire, catheter and sheath were removed and the groin was closed with Angio-Seal. An incision was made on the base of the patient's right second toe and carried down through the subcutaneous tissue with the electrocautery. The metatarsophalangeal joint space was entered and the toe was amputated and passed off table as a specimen. A rongeur was used to debride and amputate the distal metatarsal. The wound was irrigated and made hemostatic with electrocautery and packed with Kerlix. There were no complications. I was present and scrubbed for the entire procedure. MD CONSUELO Hensley/SANGEETA /5:09 AM /6:04 PM
== END 2017-05-03 13:29 | disposition home health service (06) ==
LOC: HSDC 14:39 → EDSTATUS 17:30 → HSDI 18:21 → HCPC 22:00
PROVIDERS: ADMIT Surgery; ATTEND Surgery
DX: I70.261 Atherosclerosis of native arteries of extremities with gangrene, right leg (principal); M86.9 Osteomyelitis, unspecified; I10 Essential (primary) hypertension; E11.52 Type 2 diabetes mellitus with diabetic peripheral angiopathy with gangrene; Z79.84 Long term (current) use of oral hypoglycemic drugs; Z79.01 Long term (current) use of anticoagulants
CPT/HCPCS: 01500; 28810; 37228; 37232; 82948; 88305; 88311; C1725; C1769; G0378; J0690; J1644; J2250; J2270; J2720; J3010; J7512; L3260; Q9967